=== PATIENT | female | born 1965 ===

== ENCOUNTER 2024-05-22 06:11 | Outpatient (CLI) | payer OTHER ==
[2024-05-22 07:24] LABS: PH,URINE 5.5 (5.0-8.0); URINE APPEARANCE Clear; URINE BILIRRUBIN Negative (NEGATIVE); URINE BLOOD Negative; URINE COLOR Yellow; URINE GLUCOSE Negative (NEGATIVE); URINE KETONE Negative (NEGATIVE); URINE LEUKOCYTE Negative; URINE NITRATE Negative; URINE PROTEIN Negative (NEGATIVE); URINE UROBILINOGEN 0.2 E.U./dl
[2024-05-22 07:26] LABS: URINE BACTERIA 1375.8 uL (0.0-1933); URINE EPITHELIAL CELLS 36.6 uL (0.0-38.8); URINE RBC 19.2 uL (0.0-20.8); URINE WBC 9.8 uL (0.0-23.2)
[2024-05-22 07:33] LABS: HEMATOCRIT 43.4 % (36.0-45.00); HEMOGLOBIN 14.9 g/dL (12.0-15.00); MEAN CELL VOLUME 84.1 fL (80.00-100.00); MEAN CORPUSCULAR HEMOGLOBIN 28.8 pg (27.00-32.0); MEAN CORPUSCULAR HGB CONC 34.3 g/dl (32.0-36.0); PLATELET COUNT 333 K/uL (150-450); RED BLOOD COUNT 5.16 M/uL (4.00-6.00); RED CELL DISTRIBUTION WIDTH 14.8 % (11.5-14.5)
[2024-05-22 07:35] LABS: URINE CAST 0.15 uL (0.0-1.40)
[2024-05-22 07:48] LABS: INR < 0.93; PARTIAL THROMBOPLASTIN TIME 27.4 SECONDS (22.0-34.0); PROTHROMBIN TIME 10.2 SECONDS (9.0-11.5)
[2024-05-22 07:56] LABS: ALBUMIN 4.2 gm/dL (3.4-5.0); BILIRUBIN TOTAL 0.73 mg/dL (0.3-1.2); CALCIUM 9.7 mg/dL (8.5-10.1); CREATININE SERUM 0.84 mg/dL (0.55-1.02); GFR 70.14; GLOBULINA 3.6 G/DL (2.4-3.5); POTASSIUM 3.76 mEq/L (3.5-5.1); TOTAL PROTEIN 7.8 gm/dL (6.4-8.2)
[2024-05-22 08:31] LABS: COL EPI 108 SECONDS (82-175)
== END 2024-05-22 14:43 | disposition home or self-care (01) ==
LOC: RAD 06:11
PROVIDERS: ATTEND Orthopaedic Surgery
DX: Z76.89 Persons encountering health services in other specified circumstances (principal); I10 Essential (primary) hypertension; D64.9 Anemia, unspecified; E88.89 Other specified metabolic disorders; D68.8 Other specified coagulation defects; N39.0 Urinary tract infection, site not specified; Z22.322 Carrier or suspected carrier of Methicillin resistant Staphylococcus aureus

== ENCOUNTER 2024-06-24 07:03 | Outpatient (CLI) | payer OTHER | END 2024-06-24 07:10 | disposition home or self-care (01) | LOC: RAD 07:03 | PROVIDERS: ATTEND Orthopaedic Surgery | DX: M25.572 Pain in left ankle and joints of left foot (principal) ==

== ENCOUNTER 2024-12-16 07:10 | Outpatient (CLI) | payer OTHER | END 2024-12-16 07:17 | disposition home or self-care (01) | LOC: RAD 07:10 | PROVIDERS: ATTEND Orthopaedic Surgery | DX: M76.62 Achilles tendinitis, left leg (principal) ==

== ENCOUNTER 2025-01-19 06:50 | Outpatient (CLI) | payer OTHER ==
[2025-01-19 08:43] LABS: ALBUMIN 4.1 gm/dL (3.4-5.0); BILIRUBIN TOTAL 0.91 mg/dL (0.3-1.2); CALCIUM 9.9 mg/dL (8.5-10.1); CREATININE SERUM 0.71 mg/dL (0.55-1.02); GFR 84.85; GLOBULINA 3.2 G/DL (2.4-3.5); MAGNESIUM 2.1 mg/dL (1.8-2.4); PHOSPHOROUS 3.7 mg/dL (2.5-4.9); POTASSIUM 3.36 mEq/L (3.5-5.1); TOTAL PROTEIN 7.3 gm/dL (6.4-8.2)
[2025-01-20 09:08] LABS: CALCIUM IONIZED 5.2 mg/dL (4.5-5.6)
== END 2025-01-19 06:59 | disposition home or self-care (01) ==
LOC: LAB 06:50
PROVIDERS: ATTEND Orthopaedic Surgery
DX: E88.89 Other specified metabolic disorders (principal); M81.8 Other osteoporosis without current pathological fracture; E55.9 Vitamin D deficiency, unspecified; M85.9 Disorder of bone density and structure, unspecified; E56.1 Deficiency of vitamin K